=== PATIENT | female | born 1935 | race Caucasian/White ===

== ENCOUNTER 2021-06-02 13:07 | Inpatient (IN) ==
--- NOTE | 2021-06-02 13:52 | Emergency Department Note ---
Impression & Plan Weakness, SOB (shortness of breath), Heart block, Bradycardia ED Provider Note NAME: RENNY BELLO AGE: 85 SEX: F : 1935 ARRIVES VIA: Walk-In INFORMANT: [Patient][, nursing] ED PROVIDER(S): [Asa Jane MD] CHIEF COMPLAINT: Shortness of breath HISTORY OF PRESENT ILLNESS: The patient is an 85-year-old female with dementia. As per her , she has had increasing weakness and shortness of breath over the last 10 or so months. She wore a heart monitor just recently and the findings where worrisome enough for the patient to be sent here to the hospital ED. The patient is supposedly to have a pacemaker placed tomorrow. There has been no fever, no cough or congestion. No vomiting or diarrhea. She has not complained of any chest pain. The is unaware of what was exactly found on the awake overnight monitor. REVIEW OF SYSTEMS: See HPI for pertinent positives and negatives. A total of ten systems were revie wed and were otherwise negative. PMHx/PSHx: See Below SOCIAL HISTORY: See Below. PHYSICAL EXAM: GENERAL: Patient is in no acute distress. HEENT: No acute trauma, normocephalic atraumatic, mucous membranes moist, no nasal congestion, no scleral icterus. NECK: No stridor, no adenopathy, no meningismus, trachea is midline. LUNGS: Clear to auscultation bilaterally, no wheeze, no rhonchi, breath sounds equal. HEART: 2/6 systolic murmur, irregular rhythm, bradycardic. ABDOMEN: Soft, nontender, bowel sounds positive, no hernias, no peritonitis. EXTREMITIES: No cyanosis or edema, full range of motion of all the joints without pain or difficulty, no signs for acute trauma. NEUROLOGIC: Awake and alert, somewhat confused, no acute motor or sensory deficits, no focal weakness. SKIN: No rash, no jaundice, no diaphoresis. DIFFERENTIAL DIAGNOSIS: Infection, UTI, dehydration, metabolic abnormality, hypo/hyperglycemia, electrolyte disturbance, anemia, hypoxia, cardiac sources, heart block, dysrhythmia, intracerebral event, toxicologic issues, stroke, TIA, as well as other pathologies. EMERGENCY DEPARTMENT COURSE/PROCEDURES: ECG: Indication was shortness of breath. The ECG shows what appears to be a third-degree heart block with a junctional escape. The rate is 54. There is some diffuse nonspecific ST change. A right bundle branch block is seen. No ST elevation, the QTC is 472. Continuous Cardiac Monitoring: An order was placed for continuous cardiac monitoring. The monitor shows a rate of 55 with a third-degree heart block. MEDICAL DECISION MAKING: There is a mild leukocytosis which could be consistent with infection however, the patient's white count has been elevated in the recent past. No concerning anemia. There is a normal platelet count. No significant electrolyte abnormality, no renal failure. No concerning liver enzyme elevation. Procalcitonin level was not elevated. The patient appears to be in a euthyroid state. ECG shows a third-degree heart block with what looks like a junctional escape, no obvious ischemia. Cardiac enzyme testing x1 does show a very slight troponin elevation. Chest film shows what appears to be a potential right lower lobe infiltrate. Lyme disease testing returned negative. COVID testing returned negative. The patient presents with increasing shortness of breath and weakness. She was found to be in a third-degree heart block. She may have a pneumonia on her chest x-ray, blood cultures have been ordered. She has not really had re spiratory symptoms though. I did speak with cardiology. No emergent intervention is required today. She will likely have a pacemaker placed tomorrow. I did speak with the patient and her , I spoke with the correctional casework specialist. The on-call hospitalist was consulted. Admission is warranted. Past Med/Surg History Medical History Back pain Dementia Surgical History Postoperative state (05/09/13) Social History Smoking Status: Never smoker Feels Safe at Home: Yes Allergies Allergies Allergy/AdvReac Type Severity Reaction Status Date / Time latex Allergy Intermediate ITCHY WHEN Verified 06/02/21 16:00 WEARING HOUSEHOLD GLOVES rofecoxib Allergy Unknown pesonality Verified 06/02/21 16:00 changes codeine AdvReac Mild NAUSEA Verified 06/02/21 16:00 oxycodone AdvReac Unknown hallucinations/altered Verified 06/02/21 16:00 mental state Home Meds Home Medications Medication Instructions Recorded Confirmed alendronate 70 mg tablet 70 mg PO WK 07/12/20 06/02/21 felodipine 5 mg tablet,extended 5 mg PO QAM 07/12/20 06/02/21 release 24 hr losartan 100 mg tablet 100 mg PO QAM 07/12/20 06/02/21 simvastatin 10 mg tablet 10 mg PO QPM 07/12/20 06/02/21 aspirin 81 mg tablet 81 mg PO DAILY 06/02/21 06/02/21 cholecalciferol (vitamin D3) 50 50 mcg PO DAILY 06/02/21 06/02/21 mcg (2,000 unit) capsule (Vitamin D3) memantine 10 mg tablet 10 mg PO BID 06/02/21 06/02/21 omeprazole 20 mg capsule,delayed 20 mg PO 3XWK 06/02/21 06/02/21 release polyethylene glycol 3350 17 gram 17 g PO DAILY PRN 06/02/21 06/02/21 oral powder packet vitamins A,C,M-gdwl-kmoxou 7,160 1 tab PO BID 06/02/21 06/02/21 unit-113 mg-100 unit tablet (PreserVision AREDS) Results & Data (ED) Vital Signs Vital Signs - 24 hr 06/02/21 13:10 06/02/21 13:14 06/02/21 14:07 Temperature 36.4 C L Temperature Source Temporal Artery Scan Pulse Rate 53 L 48 L 51 L Pulse Rate [Apical] 53 L Respiratory Rate 20 15 19 Respiratory Effort / Characteristics Non-Labored Spontaneous Respiratory Depth Normal Respiratory Pattern Regular Blood Pressure 169/67 H Blood Pressure [Right Arm] 171/61 H Blood Pressure Mean 101 Blood Pressure Mean [Right Arm] 97 Pulse Oximetry 96 96 96 Oxygen Delivery Method Room Air Room Air Room Air Sepsis Recent Fever Within 48 Hours No Sepsis New/Unexplained Change in Mental Status No Sepsis Action Taken by Nursing No Action Required Home Medications Current Medication List: was personally reviewed by me Laboratory Data Attestation: I reviewed the patient's lab results. Result diagrams: 06/02/21 13:50 06/02/21 15:53 Lab Results 06/02/21 06/02/21 06/02/21 Range/Units 06:02 13:50 13:50 WBC 11.07 H (4.8-10.8) K/uL RBC 3.72 L (4.2-5.4) M/uL Hgb 11.3 L (12.0-16.0) g/dL Hct 34.6 L (37-47) % MCV 93.0 (80-100) fL MCH 30.4 (25-34) pg MCHC 32.7 (32-36) g/dL RDW Std Deviation 46.8 H (36.4-46.3) fL RDW Coeff of Carrie 13.8 (11.5-14.5) % Plt Count 355 (130-400) K/uL MPV 9.7 (7.4-10.4) fL Immature Gran % (Auto) 0.2 % Neut % (Auto) 74.1 % Lymph % (Auto) 14.3 % [place] % (Auto) 8.5 % Eos % (Auto) 2.4 % Baso % (Auto) 0.5 % Neut # (Auto) 8.21 H (1.4-6.5) K/uL Lymph # (Auto) 1.58 (1.2-3.4) K/uL [place] # (Auto) 0.94 H (0.11-0.59) K/uL Eos # (Auto) 0.27 (0-0.5) K/uL Baso # (Auto) 0.05 (0-0.2) K/uL Immature Gran # (Auto) 0.02 (0.00-0.02) K/uL Sodium (136-145) mmol/L Potassium Chloride (98-107) mmol/L Carbon Dioxide (21-32) mmol/L Anion Gap (3-11) BUN (6-23) mg/dl Creatinine (0.6-1.2) mg/dl Est Cr Clr Drug Dosing ml/min Est GFR ( Amer) ml/min Est GFR (Non-Af Amer) ml/min BUN/Creatinine Ratio (10-20) Glucose (70-99(Fasting)) mg/dl Calcium (8.5-10.1) mg/dl Magnesium (1.7-2.4) mg/dl Total Bilirubin (0.2-1.0) mg/dl AST ALT (7-52) U/L Alkaline Phosphatase (34-104) U/L Troponin I High Sens 16.2 H (0-14) pg/ml Total Protein (6.0-8.3) gm/dl Albumin (3.4-5.0) gm/dl Globulin (2.5-4.0) gm/dl Albumin/Globulin Ratio (0.9-2) Procalcitonin < 0.05 (0-0.5) ng/ml TSH (0.300-4.500) uIu/ml Lyme Disease IgG Ab Negative (Negative) Lyme Disease IgM Ab Negative (Negative) SARS-CoV-2, RNA, NAAT (NEGATIVE) 06/02/21 06/02/21 06/02/21 Range/Units 13:50 13:50 14:06 WBC (4.8-10.8) K/uL RBC (4.2-5.4) M/uL Hgb (12.0-16.0) g/dL Hct (37-47) % MCV (80-100) fL MCH (25-34) pg MCHC (32-36) g/dL RDW Std Deviation (36.4-46.3) fL RDW Coeff of Carrie (11.5-14.5) % Plt Count (130-400) K/uL MPV (7.4-10.4) fL Immature Gran % (Auto) % Neut % (Auto) % Lymph % (Auto) % [place] % (Auto) % Eos % (Auto) % Baso % (Auto) % Neut # (Auto) (1.4-6.5) K/uL Lymph # (Auto) (1.2-3.4) K/uL [place] # (Auto) (0.11-0.59) K/uL Eos # (Auto) (0-0.5) K/uL Baso # (Auto) (0-0.2) K/uL Immature Gran # (Auto) (0.00-0.02) K/uL Sodium 135 L (136-145) mmol/L Potassium TNP Chloride 103 (98-107) mmol/L Carbon Dioxide 23 (21-32) mmol/L Anion Gap 9 (3-11) BUN 19 (6-23) mg/dl Creatinine 0.83 (0.6-1.2) mg/dl Est Cr Clr Drug Dosing 44.9 ml/min Est GFR ( Amer) 73.5 ml/min Est GFR (Non-Af Amer) 63.4 ml/min BUN/Creatinine Ratio 22.9 H (10-20) Glucose 109 H (70-99(Fasting)) mg/dl Calcium 8.8 (8.5-10.1) mg/dl Magnesium 2.0 (1.7-2.4) mg/dl Total Bilirubin 0.5 (0.2-1.0) mg/dl AST TNP ALT 10 (7-52) U/L Alkaline Phosphatase 61 (34-104) U/L Troponin I High Sens (0-14) pg/ml Total Protein 6.5 (6.0-8.3) gm/dl Albumin 4.0 (3.4-5.0) gm/dl Globulin 2.5 (2.5-4.0) gm/dl Albumin/Globulin Ratio 1.6 (0.9-2) Procalcitonin (0-0.5) ng/ml TSH 2.010 (0.300-4.500) uIu/ml Lyme Disease IgG Ab (Negative) Lyme Disease IgM Ab (Negative) SARS-CoV-2, RNA, NAAT NEGATIVE (NEGATIVE) Imaging Data Radiologist's Impression: Chest X-Ray 06/02/21 13:45 XR chest 1V portable CLINICAL HISTORY: weakness COMPARISON STUDY: Chest radiograph July 12, 2020. FINDINGS: Lung volumes are normal. No pneumothorax or pleural effusion is present. Mild cardiomegaly is unchanged. No evidence for pulmonary edema. There are suspected mild right lower lung opacities. IMPRESSION: 1. Suspected mild right lower lung airspace opacity. This could reflect an infectious process. Radiographic follow up is recommended. 2. Cardiomegaly without evidence for pulmonary edema. ACT 112: Negative or not required by law. Electronically signed by: Chepe Oliveros M.D. 06/02/2021 2:14 PM Discharge Plan Visit Data Chief Complaint: Shortness of Breath/Dyspnea Stated Complaint: SHORTNESS OF BREATH ED Provider: Asa Jane Discharge Problem: Weakness, SOB (shortness of breath), Heart block, Bradycardia Patient Disposition: Admitted As Inpatient Condition: Serious
[2021-06-02 14:09] LABS: Basophils # (auto) 0.05 K/uL (0-0.2); Basophils % (auto) 0.5 %; Eosinophils # (auto) 0.27 K/uL (0-0.5); Eosinophils % (auto) 2.4 %; Hematocrit (blood only) 34.6 % (37-47); Hemoglobin 11.3 g/dL (12.0-16.0); Immature Granulocytes # (auto) 0.02 K/uL (0.00-0.02); Immature Granulocytes % (auto) 0.2 %; Lymphocytes # (auto) 1.58 K/uL (1.2-3.4); Lymphocytes % (auto) 14.3 %; Mean Corpuscular Hemoglobin 30.4 pg (25-34); Mean Corpuscular Hgb Conc 32.7 g/dL (32-36); Mean Platelet Volume 9.7 fL (7.4-10.4); Monocytes # (auto) 0.94 K/uL (0.11-0.59); Monocytes % (auto) 8.5 %; Neutrophils # (auto) 8.21 K/uL (1.4-6.5); Neutrophils % (auto) 74.1 %; Platelet Count 355 K/uL (130-400); RDW Coefficient of Variation 13.8 % (11.5-14.5); RDW Standard Deviation 46.8 fL (36.4-46.3); Red Blood Count 3.72 M/uL (4.2-5.4); White Blood Count 11.07 K/uL (4.8-10.8)
--- NOTE | 2021-06-02 14:16 | XRay Report ---
XR chest 1V portable CLINICAL HISTORY: weakness COMPARISON STUDY: Chest radiograph July 12, 2020. FINDINGS: Lung volumes are normal. No pneumothorax or pleural effusion is present. Mild cardiomegaly is unchanged. No evidence for pulmonary edema. There are suspected mild right lower lung opacities. IMPRESSION: 1. Suspected mild right lower lung airspace opacity. This could reflect an infectious process. Radiog raphic follow up is recommended. 2. Cardiomegaly without evidence for pulmonary edema. ACT 112: Negative or not required by law. Electronically signed by: Chepe Oliveros M.D. 06/02/2021 2:14 PM
--- NOTE | 2021-06-02 14:40 | History & Physical Report ---
Date of Service June 02, 2021 Assessment & Plan (1) Heart block: Plan: Patient is 85-year-old female with PMH dementia, HTN, dyslipidemia presented to ER for shortness of breath and was referred by cardiology for Mobitz II, 2:1 AV block findings found on ZIO monitor In ER HR 40's-50s, BP: 169/67, 96% on RA. EKG appears to be 3rd degree heart block vs mobitz II, rate 54 Pt without SOB at rest, dizziness, CP Suspect pt's exertional SOB/fatigue from possible heart block TSH, Lyme titer WNL Echo pending Initial troponin: 16. Trend troponin NPO midnight EKG in am Cardiology consult. Tentative plan for pacemaker by Dr Blackwell on 06/03/21 unless other acute cause found (2) Abnormal CXR: Plan: CXR: Suspected mild right lower lung airspace opacity. Cardiomegaly without evidence for pulmonary edema Pt without known fever/chills, cough WBC: 11, Procalcitonin WNL Start Rocephin, doxycycline CT chest pending to r/o underlying pneumonia (3) Dementia: Plan: Continue memantine (4) HTN (hypertension): Plan: Continue losartan Hold felodipine (5) Dyslipidemia: Plan: Continue statin DVT Prophylaxis SCDs Full Code as per discussion with pt and pt's Follows with Dr Epstein for routine care Pt was seen and care coordinated with Dr Verma. See addendum History of Present Illness Chief Complaint: SOB Primary Care Provider: Jimena Epstein DO Patient is 85-year-old female with PMH dementia, HTN, dyslipidemia presented to ER for shortness of breath and was referred by cardiology for 2: 1 AV block findings found on ZIO monitor. Patient with history of dementia and helps assist with history. Reported that for the past 10 months patient has had shortness of breath and noted fatigue with exertion. He reports patient appears to become short of breath walking throughout house or climbing stairs and has to stop multiple times when grocery shopping. He feels that this has been a gradual decline but does not feel symptoms have greatly worsened over the past 1 to 2 weeks. Patient denies any chest pain. She is sitting in bed and denies any current shortness of breath. Denies any dizziness or syncopal episodes. reports at baseline patient has difficulty with balance and needs assistance with walking and uses a cane. Denies any recent falls. denies any known fever or chills. Denies any known cough or choking episodes. Reports patient had 1 episode of vomiting 3 days ago after eating breakfast, no other vomiting. Denies abdominal pain, diarrhea. No known tick bites. Patient was on felodipine and PCP had discontinued secondary to bradycardia, upon follow-up with cardiology last week felodipine was restarted. Denies diaphoresis, hematemesis, ABARCA, vision changes, neck pain, orthopnea, palpitations, sore throat, otalgia, rhinorrhea, abdominal pain, paresthesias, weakness, extremity edema, rashes, urinary symptoms. Allergies Allergy/AdvReac Type Severity Reaction Status Date / Time latex Allergy Intermediate ITCHY WHEN Verified 06/02/21 16:00 WEARING HOUSEHOLD GLOVES rofecoxib Allergy Unknown pesonality Verified 06/02/21 16:00 changes codeine AdvReac Mild NAUSEA Verified 06/02/21 16:00 oxycodone AdvReac Unknown hallucinations/altered Verified 06/02/21 16:00 mental state Home Medications Medication Instructions Recorded Confirmed Type alendronate 70 mg tablet 70 mg PO WK 07/12/20 06/02/21 History felodipine 5 mg tablet,extended 5 mg PO QAM 07/12/20 06/02/21 History release 24 hr losartan 100 mg tablet 100 mg PO QAM 07/12/20 06/02/21 History simvastatin 10 mg tablet 10 mg PO QPM 07/12/20 06/02/21 History aspirin 81 mg tablet 81 mg PO DAILY 06/02/21 06/02/21 History cholecalciferol (vitamin D3) 50 50 mcg PO DAILY 06/02/21 06/02/21 History mcg (2,000 unit) capsule (Vitamin D3) memantine 10 mg tablet 10 mg PO BID 06/02/21 06/02/21 History omeprazole 20 mg capsule,delayed 20 mg PO 3XWK 06/02/21 06/02/21 History release polyethylene glycol 3350 17 gram 17 g PO DAILY PRN 06/02/21 06/02/21 History oral powder packet vitamins A,C,Q-dbxl-jyrsho 7,160 1 tab PO BID 06/02/21 06/02/21 History unit-113 mg-100 unit tablet (PreserVision AREDS) Past Med/Surg History Medical History (Updated 06/02/21 @ 17:41 by Guillermina Murillo PA-C) Back pain Dementia Dyslipidemia HTN (hypertension) Surgical History (Updated 06/02/21 @ 17:29 by Guillermina Murillo PA-C) History of cataract surgery History of colonoscopy History of hemorrhoidectomy History of hysterectomy Family History (Updated 06/02/21 @ 17:30 by Guillermina Murillo PA-C) Other Cancer Heart disease Hypertension Social History (Updated 06/02/21 @ 17:30 by Guillermina Murillo PA-C) Smoking Status: Never smoker Hx Alcohol Use: No Hx Substance Use: No Preferred Language: Frisian Communication Ability: Impaired Communication Ability Comment: alzheimers Fish Butcher Required: No Beliefs That Will Affect Care: None Current Living Situation: Spouse Current Living Situation Comment: home with Feels Safe at Home: Yes Safety Concerns: Feels Safe At This Time Assistive Devices: Glasses Review of Systems Review of Systems: All systems reviewed & are unremarkable except as noted in HPI & below Physical Exam Physical Exam: General: no distress, WDWN Head: normocephalic, atraumatic Eyes: PERRL, EOM's intact, conjunctiva non-injected, anicteric ENT: normal inspection external ears, nose, mucous membranes moist Neck: supple, trachea midline Lungs: no respiratory distress, +rales RLL, no wheezing or rhonchi CV: bradycardia, rate 42, regular rhythm, systolic murmur, no pretibial edema Abd: normal BS, soft, non-tender Ext: no cyanosis, no calf tenderness Neuro: Alert, oriented to person only, no focal deficits noted, normal affect Skin: warm, dry Results & Data Results & Data ([facility]) Vital Signs (Past 12 Hours) Vital Signs Temp Pulse Pulse Resp BP BP Pulse Ox 06/02/21 14:07 51 L 19 96 06/02/21 13:14 48 L 53 L 15 171/61 H 96 06/02/21 13:10 36.4 C L 53 L 20 169/67 H 96 Laboratory Results Short CBC 06/02/21 Range/Units 13:50 WBC 11.07 H (4.8-10.8) K/uL Hgb 11.3 L (12.0-16.0) g/dL Hct 34.6 L (37-47) % Plt Count 355 (130-400) K/uL BMP 06/02/21 06/02/21 13:50 15:53 Sodium 135 L Potassium TNP 4.1 Chloride 103 Carbon Dioxide 23 BUN 19 Creatinine 0.83 Glucose 109 H Calcium 8.8 Liver Function 06/02/21 06/02/21 Range/Units 13:50 15:53 Total Bilirubin 0.5 (0.2-1.0) mg/dl AST TNP 11 L ALT 10 (7-52) U/L Alkaline Phosphatase 61 (34-104) U/L Albumin 4.0 (3.4-5.0) gm/dl Diagnostic Findings Chest X-Ray 06/02/21 13:45 XR chest 1V portable CLINICAL HISTORY: weakness COMPARISON STUDY: Chest radiograph July 12, 2020. FINDINGS: Lung volumes are normal. No pneumothorax or pleural effusion is present. Mild cardiomegaly is unchanged. No evidence for pulmonary edema. There are suspected mild right lower lung opacities. IMPRESSION: 1. Suspected mild right lower lung airspace opacity. This could reflect an infectious process. Radiographic follow up is recommended. 2. Cardiomegaly without evidence for pulmonary edema. ACT 112: Negative or not required by law. Electronically signed by: Chepe Oliveros M.D. 06/02/2021 2:14 PM Supervising Physician Co-Signing Physician Notes 85 yo F presents with symptomatic bradycardia and elective pacemaker insertion. She has dementia, and therefore, her history is provided through her and records. She was sent to Cardiology for SOB with exertion and bradycardia. She underwent a Zio monitor recently which reveals AV block. In the ER she had a CXR concerning for RLL pneumonia and there are coarse crackles in this area on auscultation today. denies any coughing per se, but does state she has been wheezing recently. Denies fevers. One episode of vomiting after eating breakfast the other day that did not recur. On exam she hypertensive with BP 181/78. She is able to say her name but thinks she is in [place]. She is loving and deferential to her and follows commands. She is alert and WNWD in NAD. Somewhat muffled cardiac sounds on auscultation but S1/2 were heard without murmurs, gallops or rubs. Crackles at RLL on pulmonary auscultation as above. Abdomen soft, NTND. Skin warm and dry and she is moving all extremities with ease. Labwork reveals WBC 11K with slight left shift, negative procalcitonin, slight anemia with H/H 11/35, slightly elevated trop at 16.2. Lyme screen is negative and thyroid is normal. EKG with 3rd degree AV block with junctional escape and bradycardia. CXR with RLL opacity which may be reflective of an infectious process. 85 yo F presents with AV block in need of pacemaker placement. There is concern that she may have an underlying pulmonary infection, however. It is somewhat reassuring that her procalcitonin is negative, however, would continue antibiotics pending further delineation with CT chest tonight. Her blood pre ssure is also very elevated. Still awaiting echo findings, and will give some hydralazine for now. She did take her losartan at home per and her BP was 134 systolic in the cardiology clinic earlier today. Cont to monitor closely overnight. She is high risk for hospital delirium given her underlying dementia. Cont good day/night cycles and reorient when needed. DO Bayron ADDENDUM: Procalcitonin was negative, and CT chest ruled out pneumonia. There was a small RLL effusion and atelectasis present. In this setting where patient is also not having active respiratory symptoms, this likely rules out pneumonia. Antibiotics will be stopped and will defer to cardiology to proceed with pacemaker as they see fit in am. With an additional dose of hydralazine, her blood pressure is now own to 165/69. Will cont to monitor closely overnight. DO Bayron
[2021-06-02 14:43] LABS: Alanine Aminotransferase 10 U/L (7-52); Albumin Globulin Ratio 1.6 (0.9-2); Alkaline Phosphatase 61 U/L (34-104); Anion Gap 9 (3-11); BUN Creatinine Ratio 22.9 (10-20); Bilirubin,Total 0.5 mg/dl (0.2-1.0); Blood Urea Nitrogen 19 mg/dl (6-23); Calcium 8.8 mg/dl (8.5-10.1); Carbon Dioxide 23 mmol/L (21-32); Chloride 103 mmol/L (98-107); Creatinine Clr Calc Pharmacy 44.9 ml/min; Est GFR (African American) 73.5 ml/min; Est GFR (Non-African American) 63.4 ml/min; Globulin 2.5 gm/dl (2.5-4.0); Glucose 109 mg/dl (70-99(Fasting)); Sodium 135 mmol/L (136-145); Total Protein 6.5 gm/dl (6.0-8.3)
[2021-06-02] MEDS ORDERED: cefTRIAXone SODIUM 1,000 MG in DEXTROSE 5% 50 ML IV STA (16:29)
[2021-06-02 16:31] LABS: Potassium 4.1 mmol/L (3.5-5.1)
[2021-06-02] MEDS ORDERED: cefTRIAXone SODIUM 1,000 MG/50 ML BAG IV STA (16:35)
[2021-06-02 16:59] LABS: Procalcitonin < 0.05 ng/ml (0-0.5)
[2021-06-02 17:04] LABS: Lyme Ab IgG w/WB Rflx Negative (Negative); Lyme Ab IgM w/WB Rflx Negative (Negative)
[2021-06-02] MEDS ORDERED: POLYETHYLENE (MIRALAX) 17 GM PACK PO PRN (17:20)
--- NOTE | 2021-06-02 17:57 | Communication Note ---
Date of Service: June 02, 2021 85 yo F presents with symptomatic bradycardia and elective pacemaker insertion. She has dementia, and therefore, her history is provided through her and records. She was sent to Cardiology for SOB with exertion and bradycardia. She underwent a Zio monitor recently which reveals AV block. In the ER she had a CXR concerning for RLL pneumonia and there are coarse crackles in this area on auscultation today. denies any coughing per se, but does state she has been wheezing recently. Denies fevers. One episode of vomiting after eating breakfast the other day that did not recur. On exam she hypertensive with BP 181/78. She is able to say her name but thinks she is in [place]. She is loving and deferential to her and follows commands. She is alert and WNWD in NAD. Somewhat muffled cardiac sounds on auscultation but S1/2 were heard without murmurs, gallops or rubs. Crackles at RLL on pulmonary auscultation as above. Abdomen soft, NTND. Skin warm and dry and she is moving all extremities with ease. Labwork reveals WBC 11K with slight left shift, negative procalcitonin, slight anemia with H/H 11/35, slightly elevated trop at 16.2. Lyme screen is negative and thyroid is normal. EKG with 3rd degree AV block with junctional escape and bradycardia. CXR with RLL opacity which may be reflective of an infectious process. 85 yo F presents with AV block in need of pacemaker placement. There is concern that she may have an underlying pulmonary infection, however. It is somewhat reassuring that her procalcitonin is negative, however, would continue antibiotics pending further delineation with CT chest tonight. Her blood pressure is also very elevated. Still awaiting echo findings, and will give s ome hydralazine for now. She did take her losartan at home per and her BP was 134 systolic in the cardiology clinic earlier today. Cont to monitor closely overnight. She is high risk for hospital delirium given her underlying dementia. Cont good day/night cycles and reorient when needed. DO Bayron
[2021-06-02] MEDS ORDERED: hydrALAZINE HCL 20 MG/ML VIAL IV ONE (18:14)
[2021-06-02 18:44] LABS: Appearance Urine Clear (Clear); Bacteria Urine Automated Negative (Negative); Bilirubin Urine Negative (Negative); Blood Urine Negative (Negative); Cast Urine Automated 0 /lpf (0-5); Color Urine Yellow; Glucose Urine UA Negative (Negative); Ketones Urine Negative (Negative); Leukocyte Esterase Urine Negative (Negative); Nitrite Urine Negative (Negative); Protein Urine Trace (Negative); RBC Urine Automated 0-4 /hpf (0-4); Urobilinogen Urine Negative (Negative); WBC Urine Automated 0 /hpf (0-5); pH Urine 5.5 (4.5-7.5)
[2021-06-02] MEDS ORDERED: hydrALAZINE HCL 20 MG/ML VIAL IV STA (20:44)
[2021-06-02] MEDS ORDERED: DOXYCYCLINE HYCLATE 100 MG CAP PO SCH (21:00)
[2021-06-02] MEDS: MEMANTINE HCL 10 MG TAB PO SCH (21:31)
[2021-06-02] MEDS: SIMVASTATIN 10 MG TAB PO SCH (21:31)
[2021-06-02] MEDS: PANTOprazole 40 MG TAB PO SCH (21:31)
--- NOTE | 2021-06-02 21:37 | CT Scan Report ---
CT chest diagnostic wo con CLINICAL HISTORY: r/o pneumonia TECHNIQUE: Multidetector row helical CT of the chest was performed. Coronal and sagittal reformations were obtained. Automated dose lowering techniques and/or adjustment according to patient size were u tilized for this exam. CT DOSE: 222.72 mGy.cm Comparison: None available at the time of this dictation. FINDINGS: Lungs and pleura: Bilateral pleural effusions and atelectasis are seen. There is diffuse interlobular septal thickening. A 6 mm groundglass opacity is seen in the right upper lobe (series 4 image 128). Heart and pericardium: Cardiomegaly is seen with biatrial enlargement. Vessels: Moderate atherosclerotic changes in the aorta and coronary arteries. Mediastinum and gloria: Subcentimeter lymph nodes are seen. Chest wall and lower neck: Unremarkable. Abdomen: A hiatal hernia is seen. Bones: Degenerative changes in the thoracic spine. IMPRESSION: 1. There are small bilateral pleural effusions with associated atelectasis. 2. Cardiomegaly and moderate pulmonary edema. 3. 6 mm groundglass nodule in the right upper lobe is nonspecific, however no follow-up is required by Fleischner criteria. ACT 112: Negative or not required by law. Electronically signed by: Ricky Hayes M.D. 06/02/2021 9:34 PM
[2021-06-03 03:37] LABS: BUN Creatinine Ratio 18.9 (10-20); Calcium 8.8 mg/dl (8.5-10.1); Creatinine Clr Calc Pharmacy 50.4 ml/min; Est GFR (African American) 84.4 ml/min; Est GFR (Non-African American) 72.8 ml/min; Potassium 3.9 mmol/L (3.5-5.1)
[2021-06-03 05:33] LABS: Mean Corpuscular Hgb Conc 32.7 g/dL (32-36); Mean Platelet Volume 10.2 fL (7.4-10.4); Platelet Count 371 K/uL (130-400)
[2021-06-03] MEDS: LOSARTAN POTASSIUM 50 MG TAB PO SCH (05:53)
[2021-06-03 05:56] LABS: Basophils # (auto) 0.04 K/uL (0-0.2); Basophils % (auto) 0.3 %; Eosinophils # (auto) 0.16 K/uL (0-0.5); Eosinophils % (auto) 1.4 %; Hematocrit (blood only) 34.3 % (37-47); Hemoglobin 11.2 g/dL (12.0-16.0); Immature Granulocytes # (auto) 0.01 K/uL (0.00-0.02); Immature Granulocytes % (auto) 0.1 %; Lymphocytes # (auto) 1.41 K/uL (1.2-3.4); Lymphocytes % (auto) 12.1 %; Mean Corpuscular Hemoglobin 30.5 pg (25-34); Mean Corpuscular Volume 93.5 fL (80-100); Monocytes # (auto) 0.88 K/uL (0.11-0.59); Monocytes % (auto) 7.5 %; Neutrophils # (auto) 9.18 K/uL (1.4-6.5); Neutrophils % (auto) 78.6 %; RDW Coefficient of Variation 13.8 % (11.5-14.5); RDW Standard Deviation 47.3 fL (36.4-46.3); Red Blood Count 3.67 M/uL (4.2-5.4); White Blood Count 11.68 K/uL (4.8-10.8)
[2021-06-03] MEDS ORDERED: LIDOCAINE 1% LOCAL 20 ML VIAL ONE (06:46)
[2021-06-03] MEDS ORDERED: WATER, STERILE FOR INJ 10 ML VIAL ONE (06:46)
[2021-06-03] MEDS ORDERED: VANCOMYCIN HCL 1000MG/20ML VIAL ONE (06:47)
[2021-06-03] MEDS ORDERED: BUPIVACAINE 0.25% 30 ML VIAL ONE (06:47)
[2021-06-03] MEDS ORDERED: ceFAZolin 330 MG/ML 1 GM VIAL ONE (07:14)
[2021-06-03] MEDS ORDERED: fentaNYL citrate 100 MCG/2 ML VIAL ONE ×2 (07:14→08:55)
[2021-06-03] MEDS ORDERED: MIDAZOLAM HCL 5 MG/ML 1 ML VIAL ONE (07:14)
--- NOTE | 2021-06-03 07:22 | Cardiology Consultation ---
Date of Consultation June 03, 2021 Assessment & Plan (1) Bradycardia: (2) AV block, 2nd degree: (3) SOB (shortness of breath): (4) Dementia: (5) HTN (hypertension): Patient with symptomatic atrioventricular block. CT and chest x-ray consistent with mild pulmonary edema. Patient with ongoing hypertension. At present, she is supine and comfortable. Recommend proceeding with implantation of dual-chamber permanent pacemaker. After pacemaker in place, we will work on optimizing her volume status and hypertension. Will give her her morning antihypertensive medications by mouth. Anticipate blood pressure will improve with administration of necessary sedation for procedure. Consent for the procedure will need to be obtained from her , Marcelo, either in person or by phone. History of Present Illness Attending Physician: Stacy Verma, History of Present Illness Meron Hollis is an 85 year old female seen in cardiology consultation per the request of Dr. Verma for the evaluation of bradycardia. The patient had established with the undersigned, with initial outpatient consult last week. She has a history of dementia diagnosed 2 to 3 years ago. She is unable to provide any helpful subjective history, and history is obtained last week per interview with her , Marcelo who accompanied her to the appointment. The patient had presented in a wheelchair. His recent observation was that she had progressive easy fatigability, inability to perform even brief walks due to what he felt was a visible degree of shortness of breath. The patient had 2 EKGs performed recently as an outpatient that were suggestive of sinus rhythm with frequent premature atrial contractions and blocked premature atrial contractions. She went on to have a [employer] pvc monitor which she wore for 7 days which revealed evidence of intermittent Mobitz type II second-degree heart block, and brief episodes of third-degree AV block. During these episodes, the ventricular rate was in the upper 40s to low 50s. 2Twipatient triggered events for symptoms of exertional shortness of breath correlated with 2: 1 heart block with ventricular rate in the 40s. After receiving these results yesterday, I called the , he noted worsening symptoms since her outpatient visit last week. The patient was therefore directed to the emergency room. Initial EKG consistent with third- degree AV block with ventricular rate in the 40s. At present at the time of my assessment at 7 AM 06/03/2021, telemetry reveals 2-1 AV block, ventricular rate in the upper 40s to 50s. Patient hypertensive on presentation and remains hypertensive this morning. She has no acute complaints, once again dementia noted. Allergies Allergy/AdvReac Type Severity Reaction Status Date / Time latex Allergy Intermediate ITCHY WHEN Verified 06/02/21 16:00 WEARING HOUSEHOLD GLOVES rofecoxib Allergy Unknown pesonality Verified 06/02/21 16:00 changes codeine AdvReac Mild NAUSEA Verified 06/02/21 16:00 oxycodone AdvReac Unknown hallucinations/altered Verified 06/02/21 16:00 mental state Home Medications Medication Instructions Recorded Confirmed Type alendronate 70 mg tablet 70 mg PO WK 07/12/20 06/02/21 History felodipine 5 mg tablet,extended 5 mg PO QAM 07/12/20 06/02/21 History release 24 hr losartan 100 mg tablet 100 mg PO QAM 07/12/20 06/02/21 History simvastatin 10 mg tablet 10 mg PO QPM 07/12/20 06/02/21 History aspirin 81 mg tablet 81 mg PO DAILY 06/02/21 06/02/21 History cholecalciferol (vitamin D3) 50 50 mcg PO DAILY 06/02/21 06/02/21 History mcg (2,000 unit) capsule (Vitamin D3) memantine 10 mg tablet 10 mg PO BID 06/02/21 06/02/21 History omeprazole 20 mg capsule,delayed 20 mg PO 3XWK 06/02/21 06/02/21 History release polyethylene glycol 3350 17 gram 17 g PO DAILY PRN 06/02/21 06/02/21 History oral powder packet vitamins A,C,U-aaws-tenxtn 7,160 1 tab PO BID 06/02/21 06/02/21 History unit-113 mg-100 unit tablet ([employer] AREDS) Patient History Medical History Back pain Dementia Dyslipidemia HTN (hypertension) Surgical History History of cataract surgery History of colonoscopy History of hemorrhoidectomy History of hysterectomy Family History Other Cancer Heart disease Hypertension Social History Smoking Status: Never smoker Hx Alcohol Use: No Hx Substance Use: No Preferred Language: Micronesian Communication Ability: Impaired Communication Ability Comment: alzheimers Work Environment Safety Inspector Required: No Beliefs That Will Affect Care: None Current Living Situation: Spouse Current Living Situation Comment: home with Feels Safe at Home: Yes Safety Concerns: Feels Safe At This Time Assistive Devices: Glasses Review of Systems Review of Systems: Unobtainable due to cognitive status Physical Exam Constitutional: no acute distress Respiratory: normal respiratory effort, lungs clear to auscultation Cardiovascular: Rate/Rhythm: regular rate and + bradycardic Heart Sounds: no murmur Vessels: no JVD Extremities: no edema Gastrointestinal (Abdomen): normal bowel sounds, soft, nontender, no hepatosplenomegaly Neurologic: Follows commands, cognitive impairment of dementia noted Results & Data ([facility]) Vital Signs (Past 12 Hours) Vital Signs Temp Pulse Pulse Resp BP Pulse Ox 06/03/21 04:54 36.3 C L 49 L 20 196/45 H 95 06/02/21 23:06 52 L 06/02/21 23:00 36.4 C L 64 18 191/63 H 95 06/02/21 21:50 61 165/69 H Laboratory Results Cardiac Enzymes 06/02/21 06/02/21 Range/Units 13:50 15:53 AST TNP 11 L CBC 06/02/21 06/03/21 06/03/21 Range/Units 13:50 02:54 02:59 WBC 11.07 H 11.68 H Cancelled (4.8-10.8) K/uL RBC 3.72 L 3.67 L Cancelled (4.2-5.4) M/uL Hgb 11.3 L 11.2 L Cancelled (12.0-16.0) g/dL Hct 34.6 L 34.3 L Cancelled (37-47) % Plt Count 355 371 Cancelled (130-400) K/uL Neut # (Auto) 8.21 H 9.18 H Cancelled (1.4-6.5) K/uL Lymph # (Auto) 1.58 1.41 Cancelled (1.2-3.4) K/uL Burnet # (Auto) 0.94 H 0.88 H Cancelled (0.11-0.59) K/uL Eos # (Auto) 0.27 0.16 Cancelled (0-0.5) K/uL Baso # (Auto) 0.05 0.04 Cancelled (0-0.2) K/uL Comprehensive Metabolic Panel 06/02/21 06/02/21 06/03/21 Range/Units 13:50 15:53 02:59 Sodium 135 L 136 (136-145) mmol/L Potassium TNP 4.1 3.9 Chloride 103 104 (98-107) mmol/L Carbon Dioxide 23 23 (21-32) mmol/L BUN 19 14 (6-23) mg/dl Creatinine 0.83 0.74 (0.6-1.2) mg/dl Glucose 109 H 108 H (70-99(Fasting)) mg/dl Calcium 8.8 8.8 (8.5-10.1) mg/dl AST TNP 11 L ALT 10 (7-52) U/L Alkaline Phosphatase 61 (34-104) U/L Total Protein 6.5 (6.0-8.3) gm/dl Albumin 4.0 (3.4-5.0) gm/dl Intake and Output 06/02/21 06/03/21 06/03/21 22:59 06:59 14:59 Intake Total 50 / 50 Output Total 900 / 1150 250 / 1150 Balance -850 / -1100 -250 / -1100 Intake: IV 50 / 50 cefTRIAXone SODIUM 1,000 mg In 50 / 50 50 ml @ 100 mls/hr IV NOW STA Rx#:[id number] Output: Urine Amount (Catheter) 900 / 1150 250 / 1150 Pedro/Indwelling 900 / 1150 250 / 1150 Other: Weight 77.2 kg 76.4 kg Weight Measurement Method Built in [facility] Built in [facility] Diagnostic Findings Most recent EKG performed 06/03/2021 at 5:49 AM reveals second-degree AV block with 2: 1 conduction. Ventricular rate 48 bpm. Right bundle branch block. Echocardiogram performed 06/02/2021, performed while patient was in second-degree heart block, mild concentric left ventricular hypertrophy, LVEF 65 to 70%, no regional wall motion abnormalities, severe mitral annular calcification without mitral stenosis. Assessment of mitral regurgitation limited due to AV block, mild tricuspid regurgitation noted, estimated pulmonary artery systolic pressure mildly elevated [address], small bilateral pleural effusions per radiology report, cardiomegaly and moderate pulmonary edema, 6 mm groundglass nodule in the right upper lobe, nonspecific.
--- NOTE | 2021-06-03 07:55 | History & Physical Bridge Note ---
Date of Service June 03, 2021 History & Physical Bridge Note I have examined the patient, reviewed the History & Physical and in the interval since the performance of the History & Physical I have noted the following changes of clinical significance: no changes noted; pt with intermittent CHB; i spoke with the patient's and discussed the procedure and potential risks for a dual chamber ppm; phone consent obtained.
--- NOTE | 2021-06-03 07:56 | Pre Anesthesia Assessment ---
Date of Service June 03, 2021 Pre Sedation Assessment Vital Signs Temp Pulse Pulse Resp BP BP Pulse Ox 06/03/21 07:43 45 L 06/03/21 07:37 58 L 18 185/68 H 95 06/03/21 07:31 56 L 185/68 H 96 06/03/21 07:23 36.7 C 60 22 202/70 H 94 06/03/21 04:54 36.3 C L 49 L 20 196/45 H 95 06/02/21 23:06 52 L 06/02/21 23:00 36.4 C L 64 18 191/63 H 95 06/02/21 21:50 61 165/69 H 06/02/21 18:39 45 L 180/53 H 06/02/21 18:30 45 L 06/02/21 17:20 37 C 42 L 18 181/78 H 94 06/02/21 17:14 36.5 C 46 L 18 188/62 H 96 06/02/21 15:08 48 L 21 173/69 H 96 06/02/21 14:07 51 L 19 96 06/02/21 13:14 48 L 53 L 15 171/61 H 96 06/02/21 13:10 36.4 C L 53 L 20 169/67 H 96 Cardiovascular + bradycardic Respiratory normal respiratory effort, lungs clear to auscultation Pre-Sedation Airway Assessment Smoking Status: Never smoker Short, Thick Neck: No Thyromental Distance: > or= 3.5 Finger Breadths Oral Cavity: + WNL Mallampati Class: III ASA: ASA3 NPO Status Date of Last Intake of Fluids: 06/02/21 Date of Last Intake of Solid Food: 06/02/21 Procedure Planning Contraindications for Sedation: none Current Medications Reviewed: Yes Notes The planned sedation has been discussed with the patient. Informed Consent was obtained. I have identified the patient, determined the appropriateness of sedation and have assessed the patient immediately prior to the procedure. All medicine(s) and interventions are by my order.
[2021-06-03] MEDS ORDERED: ONDANSETRON INJ 2 MG/ML 2 ML VIAL ONE (08:31)
[2021-06-03] MEDS ORDERED: PROMETHAZINE 12.5 MG/50.5 ML NSS IV ONE (08:52)
[2021-06-03] MEDS ORDERED: LOSARTAN POTASSIUM 50 MG TAB PO SCH (09:00)
[2021-06-03] MEDS ORDERED: cefTRIAXone SODIUM 1,000 MG in DEXTROSE 5% 50 ML IV SCH (09:00)
--- NOTE | 2021-06-03 09:28 | Post Anesthesia Assessment ---
Date of Service June 03, 2021 Post Sedation Assessment Vital Signs Temp Pulse Pulse Resp BP BP Pulse Ox 06/03/21 07:43 45 L 06/03/21 07:37 58 L 18 185/68 H 95 06/03/21 07:31 56 L 185/68 H 96 06/03/21 07:23 36.7 C 60 22 202/70 H 94 06/03/21 04:54 36.3 C L 49 L 20 196/45 H 95 06/02/21 23:06 52 L 06/02/21 23:00 36.4 C L 64 18 191/63 H 95 06/02/21 21:50 61 165/69 H 06/02/21 18:39 45 L 180/53 H 06/02/21 18:30 45 L 06/02/21 17:20 37 C 42 L 18 181/78 H 94 06/02/21 17:14 36.5 C 46 L 18 188/62 H 96 06/02/21 15:08 48 L 21 173/69 H 96 06/02/21 14:07 51 L 19 96 06/02/21 13:14 48 L 53 L 15 171/61 H 96 06/02/21 13:10 36.4 C L 53 L 20 169/67 H 96 Recovery Score Activity: Moves 4 extremities Respiration: Deep Breath/Cough Circulation: +/-20% PreAnes Value Consciousness: Fully Awake Oxygen Saturation: > 92% On Room Air Discharge Sedation Level of Care: Fast Track Phase II Post Sedation Plan On clinical assessment, the patient appears to have tolerated the sedation without complications. Patient is recovering as anticipated. Patient will continue to be monitored by nursing and may be discharged when sedation discharge criteria are met per below protocol. Upon Completions of procedure up to 15 minutes continue every 5 minute vital signs and the P.A.R. score; then discharge to a Phase I or Fast Track to Phase II per the following guidelines: * Discharge Patient to appropriate Phase II area if PAR is 8 or greater or return to pre- procedure baseline. The post - procedure orders will be as directed. * If PAR score is less than 8 or not return to pre-procedure baseline then patient will follow Phase I monitoring till PAR is reached for Phase II. The Phase I may be done in procedure room or may call to secure a Phase I area. * If naloxone or flumazenil are used for reversal, hold in Phase I for continued monitoring from when last reversal dose was given for a minimum of 60 minutes or longer pending the nurse and/or physician discretion of patient condition before discharge to Phase II. Please call the Sedation Physician to re-evaluate and complete post-note for discharge to Phase II area. Do NOT discharge from procedure sedation or Phase 1 until post- sedation evaluation note is complete by procedure /sedation MD Sedation Discharge Instructions to be given to the patient at discharge to home.
[2021-06-03] MEDS ORDERED: ACETAMINOPHEN 325 MG TAB PO PRN (09:29)
--- NOTE | 2021-06-03 09:29 | Operative Report ---
Post Operative Report Pre & Post Diagnosis CHB Operation Date: 06/03/21 08:00 <No data on this case meets the specified criteria> I identified the patient and participated in the time-out.: Yes Procedure Operation Date: 06/03/21 08:00 Actual Procedures s Bundle of his Recording - Dalia Blcakwell DO p Pacer with A/V Leads (Dual) - Dalia Blackwell DO s Venogram, Unilateral - Dalia Blackwell DO Surgeon Dalia Blackwell, Machine Packager none Estimated Blood Loss 40 Findings Consistent with Post-Op Diagnosis Specimens none Description of Procedure see official report I attest to the content of the Intraoperative Record and any orders documented therein. Any exceptions are noted below.
[2021-06-03] MEDS: ASPIRIN 81 MG ECTAB PO SCH (10:25)
[2021-06-03] MEDS: MEMANTINE HCL 10 MG TAB PO SCH ×2 (10:25→20:23)
[2021-06-03] MEDS ORDERED: FUROSEMIDE INJ 20 MG/2 ML VIAL IV ONE (11:53)
--- NOTE | 2021-06-03 11:57 | Communication Note ---
Date of Service: June 03, 2021 Pt reassessed post pacemaker. Moderate agitation noted. SBP remains 180s to 190s, occasional wheezing (perhaps related to volume retention). 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 1:1 supervision recommended to prevent her from causing harm to pacemaker pocket/ leads. Might be helpful to have in to help redirect / calm her.
[2021-06-03] MEDS: METOPROLOL TARTRATE 25 MG TAB PO SCH ×2 (12:48→20:22)
[2021-06-03] MEDS: ACETAMINOPHEN 325 MG TAB PO PRN (14:02)
[2021-06-03] MEDS: amLODIPine BESYLATE 5 MG TAB PO SCH (14:02)
--- NOTE | 2021-06-03 17:54 | Electrocardiogram Report ---
Test Reason : Blood Pressure : / mmHG Vent. Rate : 054 BPM Atrial Rate : 083 BPM P-R Int : 000 ms QRS Dur : 122 ms QT Int : 498 ms P-R-T Axes : 000 056 019 degrees QTc Int : 472 ms Sinus rhythm with high degree AV block and junctional escape beats Right bundle branch block Abnormal ECG When compared with ECG of 02-JUN-2021 13:35, (unconfirmed) T wave inversion now evident in Inferior leads Confirmed by Logan Liu ([id number]) on 06/03/2021 5:54:11 PM Referred By: Confirmed By:Josef Liu
--- NOTE | 2021-06-03 18:01 | Electrocardiogram Report ---
Test Reason : Blood Pressure : / mmHG Vent. Rate : 048 BPM Atrial Rate : 048 BPM P-R Int : 146 ms QRS Dur : 118 ms QT Int : 582 ms P-R-T Axes : 059 058 036 degrees QTc Int : 519 ms Sinus rhythm with 2:1 AV block Right bundle branch block Abnormal ECG Confirmed by Logan Liu ([id number]) on 06/03/2021 6:01:01 PM Referred By: Ced Cannon Confirmed By:Josef Liu
--- NOTE | 2021-06-03 18:06 | Electrocardiogram Report ---
Test Reason : Blood Pressure : / mmHG Vent. Rate : 093 BPM Atrial Rate : 093 BPM P-R Int : 152 ms QRS Dur : 120 ms QT Int : 392 ms P-R-T Axes : 039 -32 133 degrees QTc Int : 487 ms Poor data quality, interpretation may be adversely affected Atrial-sensed ventricular-paced rhythm Abnormal ECG When compared with ECG of 03-JUN-2021 05:49, (unconfirmed) Electronic ventricular pacemaker has replaced Sinus rhythm Vent. rate has increased BY 45 BPM Confirmed by Logan Liu ([id number]) on 06/03/2021 6:06:32 PM Referred By: Ced Cannon Confirmed By:Josef Liu
[2021-06-03] MEDS: SIMVASTATIN 10 MG TAB PO SCH (20:23)
--- NOTE | 2021-06-03 23:53 | Hospitalist Progress Note ---
Date of Service June 03, 2021 Assessment & Plan (1) Heart block: Plan: Patient is 85-year-old female with PMH dementia, HTN, dyslipidemia presented to ER for shortness of breath and was referred by cardiology for Mobitz II, 2:1 AV block findings found on ZIO monitor EKG on admission consistent with third-degree AV block with ventricular rate in the 40s. S/P pacemaker placement today by dr. Blackwell No postop complication continue 1 to 1 observation prevent her from causing harm to pacemaker pocket/ leads due to her dementia Will get cxr in am continue monitor closely (2) Elevated troponin: Plan: troponin peak to 343 Denies any chest pain Cardiology on board Continue aspirin, statin and metoprolol (3) Abnormal CXR: Plan: CXR: Suspected mild right lower lung airspace opacity. Cardiomegaly without evidence for pulmonary edema CT chest showed Cardiomegaly and moderate pulmonary edema.6 mm groundglass nod ule in the right upper lobe is nonspecific Pt without known fever/chills, cough WBC: 11, Procalcitonin WNL Abx was discontinued Continue monitor (4) Dementia: Plan: Continue memantine (5) HTN (hypertension): Plan: BP elevated Continue losartan Metoprolol 25mg BID and Amlodipine 5mg added Continue monitor BP (6) Dyslipidemia: Plan: Continue statin DVT Prophylaxis SCDs Full Code Follows with Dr Epstein for routine care Admission and Anticipated Discharge Date Admission Date: June 02, 2021 Subjective Patient was seen and evaluated for postop follow-up for pacemaker placement Lying in bed with no acute distress with at bedside Pt was not agitated and follow command Denies any pain, palpitation and SOB Review of Systems Review of Systems: All systems reviewed & are unremarkable except as noted in Subjective Physical Exam Physical Exam: General- No acute distress Head- atraumatic Eyes- PERRL, EOMI, ENT- oropharynx clear Neck- supple, no JVD Lungs- clear to auscultation Heart- regular rhythm; no murmur Abdomen- normal bowel sounds, soft, nontender Extremities- no calf tenderness Neuro- alert, oriented x 3; PERRL, EOMI; no facial palsy; no dysarthria Skin- warm & dry Results & Data Results & Data ([facility]) Vital Signs (Past 12 Hours) Vital Signs Temp Pulse Pulse Resp BP Pulse Ox 06/03/21 22:57 36.8 C 71 18 188/82 H 94 06/03/21 19:19 37.0 C 75 18 161/82 H 95 06/03/21 15:22 37.1 C 74 21 163/70 H 91 06/03/21 14:56 74 06/03/21 12:15 96 H 16 197/79 H 95
[2021-06-04 08:07] LABS: Hemoglobin 10.4 g/dL (12.0-16.0); Mean Corpuscular Hemoglobin 30.1 pg (25-34); Mean Corpuscular Hgb Conc 31.5 g/dL (32-36); Mean Corpuscular Volume 95.4 fL (80-100); Mean Platelet Volume 9.6 fL (7.4-10.4); Platelet Count 327 K/uL (130-400); RDW Coefficient of Variation 13.8 % (11.5-14.5); RDW Standard Deviation 47.9 fL (36.4-46.3); Red Blood Count 3.46 M/uL (4.2-5.4); White Blood Count 9.12 K/uL (4.8-10.8)
[2021-06-04 08:41] LABS: BUN Creatinine Ratio 22.1 (10-20); Calcium 8.4 mg/dl (8.5-10.1); Creatinine Clr Calc Pharmacy 43.1 ml/min; Est GFR (African American) 70.4 ml/min; Est GFR (Non-African American) 60.7 ml/min
[2021-06-04 08:45] LABS: Troponin I High Sensitivity 378.6 pg/ml (0-14)
--- NOTE | 2021-06-04 08:46 | XRay Report ---
XR chest 2V PA/lateral HISTORY: 85 years-old Female s/p ppm status post placement of a left subclavian pacer COMPARISON: Chest radiograph 06/02/2021 TECHNIQUE: AP and lateral views of the chest FINDINGS: Status post placement of a left subclavian pacer with expected air and soft tissue swelling of the le ft chest wall. No postprocedural pneumothorax. Small pleural effusions. Emphysema with interstitial c oarsening. The previously noted subcentimeter opacity of the right upper lobe is not appreciated by r adiography. Degenerative changes of the shoulders and spine. IMPRESSION: 1. Status post placement of a left subclavian pacer. No pneumothorax. 2. Mild pulmonary edema with small pleural effusions redemonstrated. ACT 112: Negative or not required by law. The above report was generated using voice recognition software. It may contain grammatical, syntax o r spelling errors. Electronically signed by: Anthony Godoy M.D. 06/04/2021 8:45 AM
[2021-06-04] MEDS: amLODIPine BESYLATE 5 MG TAB PO SCH (09:34)
[2021-06-04] MEDS: ASPIRIN 81 MG ECTAB PO SCH (09:34)
[2021-06-04] MEDS: PANTOprazole 40 MG TAB PO SCH (09:35)
[2021-06-04] MEDS: LOSARTAN POTASSIUM 50 MG TAB PO SCH (09:35)
[2021-06-04] MEDS: METOPROLOL TARTRATE 25 MG TAB PO SCH ×2 (09:35→20:04)
[2021-06-04] MEDS: MEMANTINE HCL 10 MG TAB PO SCH ×2 (09:35→20:04)
--- NOTE | 2021-06-04 10:03 | Cardiology Progress Note ---
Date of Service June 04, 2021 Assessment & Plan (1) AV block, 2nd degree: (2) HTN (hypertension): (3) Elevated troponin: (4) Dementia: Plan: (1) AV block, 2nd degree: -Recent observation of intermittent Mobitz type II second-degree AV block, intermittent third-degree AV block for which patient underwent dual-chamber [employer] permanent pacemaker 06/03/2021 with placement of right atrial lead, and right ventricular, His bundle lead. Telemetry this morning reveals sinus rhythm with appropriate ventricular pacing in the 70s to 80s. Pacemaker interrogation reveals appropriate function. Chest x-ray reveals no pneumothorax, ongoing trace to small bilateral pleural effusions noted. (2) HTN (hypertension): -Blood pressure trending toward improvement. Most recent measurement 170/72. Difficult to determine how much of this is due to patient's anxiety/agitation given her dementia. Given findings of trace bilateral pleural effusion and wheezing which I think may be cardiac, will continue with current medications including losartan, metoprolol, amlodipine. Proceed with an additional dose of IV furosemide 20 mg now. Pedro catheter in place. (3) Elevated troponin: -Elevated troponin, likely reflective of high blood pressure. Do not think this is due to an acute coronary syndrome. (4) Dementia: Ongoing one-to-one supervision necessary. Dementia is certainly a complicating situation as longer she is in the hospital, anticipate ongoing confusion but certainly she has not ready for discharge from a blood pressure, volume status standpoint as of yet. DVT prophylaxis: hold off on lovenox or Heparin todday, 06/04/21 in effort to reduced risk of pocket hematoma. Will reassess this tomorrow. Admission and Anticipated Discharge Date Admission Date: June 02, 2021 Results & Data ([facility]) Vital Signs (Past 12 Hours) Vital Signs Temp Pulse Pulse Resp BP Pulse Ox 06/04/21 07:37 36.6 C 77 20 170/72 H 90 06/04/21 03:22 36.3 C L 70 18 184/77 H 94 06/04/21 01:06 71 06/03/21 22:57 36.8 C 71 18 188/82 H 94 Diagnostic Findings Cardiac Enzymes 06/02/21 06/02/21 06/03/21 Range/Units 13:50 20:43 02:59 Troponin I High Sens 16.2 H 17.5 H 42.0 H D (0-14) pg/ml 06/03/21 06/04/21 Range/Units 10:34 06:56 Troponin I High Sens 343.6 H* D 378.6 H* (0-14) pg/ml CBC 06/04/21 Range/Units 06:56 WBC 9.12 (4.8-10.8) K/uL RBC 3.46 L (4.2-5.4) M/uL Hgb 10.4 L (12.0-16.0) g/dL Hct 33.0 L (37-47) % Plt Count 327 (130-400) K/uL Comprehensive Metabolic Panel 06/04/21 Range/Units 06:56 Sodium 141 (136-145) mmol/L Potassium 4.0 (3.5-5.1) mmol/L Chloride 107 (98-107) mmol/L Carbon Dioxide 27 (21-32) mmol/L BUN 19 (6-23) mg/dl Creatinine 0.86 (0.6-1.2) mg/dl Glucose 83 (70-99(Fasting)) mg/dl Calcium 8.4 L (8.5-10.1) mg/dl Intake and Output 06/03/21 06/04/21 06/04/21 22:59 06:59 14:59 Output Total 1499 Balance -1499 / -1724 - Output: Urine Amount (Catheter) 1499 / 1724 Pedro/Indwelling 1499
[2021-06-04] MEDS ORDERED: FUROSEMIDE INJ 20 MG/2 ML VIAL IV ONE (10:11)
--- NOTE | 2021-06-04 10:17 | Communication Note ---
Date of Service: June 04, 2021 I spoke to . He feels he can care for her at home. If BP improved 06/05/21, will consider discharge then.
[2021-06-04] MEDS: SIMVASTATIN 10 MG TAB PO SCH (20:05)
[2021-06-04] MEDS: ACETAMINOPHEN 325 MG TAB PO PRN (20:35)
[2021-06-04] MEDS ORDERED: amLODIPine BESYLATE 5 MG TAB PO ONE (23:10)
--- NOTE | 2021-06-04 23:36 | Hospitalist Progress Note ---
Date of Service June 04, 2021 Assessment & Plan (1) Heart block: Plan: Patient is 85-year-old female with PMH dementia, HTN, dyslipidemia presented to ER for shortness of breath and was referred by cardiology for Mobitz II, 2:1 AV block findings found on ZIO monitor EKG on admission consistent with third-degree AV block with ventricular rate in the 40s. S/P pacemaker placement on 06/[address] Blackwell No postop complication CXR showed Status post placement of a left subclavian pacer. No pneumothorax. Telemonitor showed NSR Pacemaker interrogation reveals appropriate function. continue 1 to 1 observation prevent her from causing harm to pacemaker pocket/ leads due to her dementia continue monitor closely (2) Elevated troponin: Plan: Mostly due to elevate blood pressure troponin peak to 343 Denies any chest pain Cardiology on board Continue aspirin, statin and metoprolol (3) Abnormal CXR: Plan: CXR: Suspected mild right lower lung airspace opacity. Cardiomegaly without evidence for pulmonary edema CT chest showed Cardiomegaly and moderate pulmonary edema.6 mm groundglass nodul e in the right upper lobe is nonspecific CXR repeat today showed Mild pulmonary edema with small pleural effusions redemonstrated. Pt without known fever/chills, cough WBC: 11, Procalcitonin WNL Abx was discontinued Additional lasix will give today Continue monitor (4) Dementia: Plan: Continue memantine (5) HTN (hypertension): Plan: BP elevated Continue losartan Metoprolol 25mg BID and Amlodipine increased to 7.5mg Continue monitor BP (6) Dyslipidemia: Plan: Continue statin DVT Prophylaxis SCDs Full Code Follows with Dr Epstein for routine care Admission and Anticipated Discharge Date Admission Date: June 02, 2021 Subjective Patient was seen and evaluated for postop follow-up for pacemaker placement Lying in bed with no acute distress with 1 to 1 sitter at bedside Very calm and follows command Denies any pain, palpitation and SOB Review of Systems Review of Systems: All systems reviewed & are unremarkable except as noted in Subjective Physical Exam Physical Exam: General- No acute distress Head- atraumatic Eyes- PERRL, EOMI, ENT- oropharynx clear Neck- supple, no JVD Lungs- clear to auscultation Heart- regular rhythm; no murmur Abdomen- normal bowel sounds, soft, nontender Extremities- no calf tenderness Neuro- alert, oriented x 3; PERRL, EOMI; no facial palsy; no dysarthria Skin- warm & dry Results & Data Results & Data ([facility]) Vital Signs (Past 12 Hours) Vital Signs Temp Pulse Pulse Resp BP Pulse Ox 06/04/21 22:53 67 06/04/21 22:47 36.7 C 67 16 183/71 H 92 06/04/21 18:52 36.5 C 80 18 159/72 H 95 06/04/21 16:12 71 06/04/21 12:20 73
[2021-06-05 06:28] LABS: Hematocrit (blood only) 35.7 % (37-47); Hemoglobin 11.6 g/dL (12.0-16.0); Mean Corpuscular Hemoglobin 30.4 pg (25-34); Mean Corpuscular Hgb Conc 32.5 g/dL (32-36); Mean Corpuscular Volume 93.7 fL (80-100); Mean Platelet Volume 9.4 fL (7.4-10.4); Platelet Count 329 K/uL (130-400); RDW Coefficient of Variation 13.4 % (11.5-14.5); RDW Standard Deviation 46.1 fL (36.4-46.3); Red Blood Count 3.81 M/uL (4.2-5.4); White Blood Count 11.41 K/uL (4.8-10.8)
[2021-06-05 06:54] LABS: Calcium 8.5 mg/dl (8.5-10.1); Creatinine Clr Calc Pharmacy 46.3 ml/min; Est GFR (African American) 76.8 ml/min; Est GFR (Non-African American) 66.3 ml/min
[2021-06-05] MEDS ORDERED: hydrALAZINE HCL 20 MG/ML VIAL IV PRN (07:44)
[2021-06-05] MEDS: LOSARTAN POTASSIUM 50 MG TAB PO SCH (08:44)
[2021-06-05] MEDS: ASPIRIN 81 MG ECTAB PO SCH (08:44)
[2021-06-05] MEDS: MEMANTINE HCL 10 MG TAB PO SCH (08:44)
[2021-06-05] MEDS: METOPROLOL TARTRATE 25 MG TAB PO SCH (08:45)
[2021-06-05] MEDS ORDERED: hydrALAZINE 10 MG TAB PO SCH (09:00)
[2021-06-05] MEDS ORDERED: amLODIPine BESYLATE 5 MG TAB PO SCH (09:00)
--- NOTE | 2021-06-05 11:06 | Cardiology Progress Note ---
Date of Service June 05, 2021 Assessment & Plan (1) AV block, 2nd degree: (2) HTN (hypertension): (3) Elevated troponin: (4) Dementia: Plan: (1) AV block, 2nd degree: -Recent observation of intermittent Mobitz type II second-degree AV block, intermittent third-degree AV block for which patient underwent dual-chamber Medtronic permanent pacemaker 06/03/2021 with placement of right atrial lead, and right ventricular, His bundle lead. -Patient to have wound check, outpatient pacemaker interrogation per protocol for new device and interval of 6 to 10 days post procedure. I have already requested the appointment in her epic record yesterday. She already has a clinical cardiology follow-up appointment tentatively planned on 07/26/2021. (2) HTN (hypertension): -Blood pressure elevated. I shared concerns with the hospitalist service of her ongoing high blood pressure readings. However, her outpatient blood pressure readings have been historically quite well controlled, most recent measurement a week ago performed at the time of her clinic visit with me was 134/86, with other recent readings of 144/72, 140/78, and similar readings dating back to 2019. This of course is much different than the 170s to 180 systolic blood pressure range observed during recent hospital stay. As noted, patient with dementia, easily agitated. I have concerns with regards to being too aggressive with her antihypertensive regimen for fear of making her blood pressure too low once that she gets home. I have therefore reduced her amlodipine back to 5 mg daily, and I have eliminated the order for the oral hydralazine. (3) Elevated troponin: -Elevated troponin, likely reflective of high blood pressure. Do not think this is due to an acute coronary syndrome. (4) Dementia: Ongoing one-to-one supervision necessary. Dementia is certainly a complicating situation as longer she is in the hospital, anticipate ongoing confusion but certainly she has not ready for discharge from a blood pressure, volume status standpoint as of yet. DISPOSITION: -Device pocket examined today by the undersigned 06/05/2021, bandage removed and replaced. Incision looks good, with mild appropriate erythema, no drainage, no hematoma. Patient became very excited with removing her bandage, screaming in pain which once again I think is a good marker of why her blood pressure is elevated in the setting of her dementia in the hospital. Patient stable for discharge from cardiac perspective on aspirin 81 mg daily, simvastatin 10 mg by mouth daily, metoprolol tartrate 25 mg twice daily (new medication) losartan 100 mg by mouth daily in the morning) amlodipine 5 mg daily (replaces felodipine) and furosemide 20 mg by mouth daily. -Therefore metoprolol and furosemide are actually the new medications with regards to her blood pressure and suspected diastolic dysfunction. -I had spoken to her by phone yesterday. He was in favor of bringing her home. Recommend discharge today. Admission and Anticipated Discharge Date Admission Date: June 02, 2021 Subjective Patient seen in cardiology follow-up. Exam limited due to his dementia. Does not recognize me. Does not recognize that she is in the hospital or what year it is. She has a nursing program chair watching her in one-to-one supervision. Telemetry reveals sinus rhythm in the 70s with atrial sensing and ventricular pacing. Review of Systems Review of Systems: Unobtainable due to cognitive status Physical Exam Constitutional: no acute distress Respiratory: normal respiratory effort, lungs clear to auscultation Cardiovascular: Rate/Rhythm: regular rate and + bradycardic Heart Sounds: no murmur Vessels: no JVD Extremities: no edema Gastrointestinal (Abdomen): normal bowel sounds, soft, nontender, no hepatosplenomegaly Results & Data ([facility]) Vital Signs (Past 12 Hours) Vital Signs Temp Pulse Pulse Resp BP Pulse Ox 06/05/21 07:08 67 06/05/21 07:03 36.7 C 67 19 186/79 H 95 06/05/21 03:13 36.4 C L 72 18 172/75 H 95 Laboratory Results CBC 06/05/21 Range/Units 05:54 WBC 11.41 H (4.8-10.8) K/uL RBC 3.81 L (4.2-5.4) M/uL Hgb 11.6 L (12.0-16.0) g/dL Hct 35.7 L (37-47) % Plt Count 329 (130-400) K/uL Comprehensive Metabolic Panel 06/05/21 Range/Units 05:54 Sodium 137 (136-145) mmol/L Potassium 4.0 (3.5-5.1) mmol/L Chloride 103 (98-107) mmol/L Carbon Dioxide 28 (21-32) mmol/L BUN 24 H (6-23) mg/dl Creatinine 0.80 (0.6-1.2) mg/dl Glucose 90 (70-99(Fasting)) mg/dl Calcium 8.5 (8.5-10.1) mg/dl Intake and Output 06/04/21 06/05/21 06/05/21 22:59 06:59 14:59 Intake Total 225 / 665 200 / 665 Output Total 1949 Balance -400 / -1285 -325 / -1285 Intake: Oral 225 / 665 200 / 665 Output: Urine Amount (Catheter) 1949 Pedro/Indwelling 1949 Other: Weight 76.3 kg Weight Measurement Method Built in [facility]
[2021-06-05] MEDS: ACETAMINOPHEN 325 MG TAB PO PRN (12:38)
--- NOTE | 2021-06-05 14:48 | Discharge Summary ---
Date of Service June 05, 2021 Admission HPI Per Admitting Provider Patient is 85-year-old female with PMH dementia, HTN, dyslipidemia presented to ER for shortness of breath and was referred by cardiology for 2: 1 AV block findings found on ZIO monitor. Patient with history of dementia and helps assist with history. Reported that for the past 10 months patient has had shortness of breath and noted fatigue with exertion. He reports patient appears to become short of breath walking throughout house or climbing stairs and has to stop multiple times when grocery shopping. He feels that this has been a gradual decline but does not feel symptoms have greatly worsened over the past 1 to 2 weeks. Patient denies any chest pain. She is sitting in bed and denies any current shortness of breath. Denies any dizziness or syncopal episodes. reports at baseline patient has difficulty with balance and needs assistance with walking and uses a cane. Denies any recent falls. denies any known fever or chills. Denies any known cough or choking episodes. Reports patient had 1 episode of vomiting 3 days ago after eating breakfast, no other vomiting. Denies abdominal pain, diarrhea. No known tick bites. Patient was on felodipine and PCP had discontinued secondary to bradycardia, upon follow-up with cardiology last week felodipine was restarted. Denies diaphoresis, hematemesis, ABARCA, vision changes, neck pain, orthopnea, palpitations, sore throat, otalgia, rhinorrhea, abdominal pain, paresthesias, weakness, extremity edema, rashes, urinary symptoms. Admission Exam Per Admitting Provider General: no distress, WDWN Head: normocephalic, atraumatic Eyes: PERRL, EOM's intact, conjunctiva non-injected, anicteric ENT: normal inspection external ears, nose, mucous membranes moist Neck: supple, trachea midline Lungs: no respiratory distress, +rales RLL, no wheezing or rhonchi CV: bradycardia, rate 42, regular rhythm, systolic murmur, no pretibial edema Abd: normal BS, soft, non-tender Ext: no cyanosis, no calf tenderness Neuro: Alert, oriented to person only, no focal deficits noted, normal affect Skin: warm, dry Principal Diagnosis Heart block Elevated troponin: Abnormal CXR: Dementia: HTN (hypertension): Dyslipidemia Discharge Exam General- No acute distress Head- atraumatic Eyes- PERRL, EOMI, ENT- oropharynx clear Neck- supple, no JVD Lungs- clear to auscultation Heart- regular rhythm; no murmur Abdomen- normal bowel sounds, soft, nontender Extremities- no calf tenderness Neuro- alert, oriented x 3; PERRL, EOMI; no facial palsy; no dysarthria Skin- warm & dry Discharge Data Allergies Allergy/AdvReac Type Severity Reaction Status Date / Time latex Allergy Intermediate ITCHY WHEN Verified 06/02/21 16:00 WEARING HOUSEHOLD GLOVES rofecoxib Allergy Unknown pesonality Verified 06/02/21 16:00 changes codeine AdvReac Mild NAUSEA Verified 06/02/21 16:00 oxycodone AdvReac Unknown hallucinations/altered Verified 06/02/21 16:00 mental state Consultations 06/02/21 14:16 ED Decision to Admit Stat 06/02/21 17:20 Consult Cardiology Routine Procedures Performed Operation Date: 06/03/21 08:00 Actual Procedures s Bundle of his Recording - Dalia Blackwell DO p Pacer with A/V Leads (Dual) - Dalia Blackwell DO s Venogram, Unilateral - Dalia Blackwell DO Ordered Studies 06/02/21 17:44 CT chest diagnostic wo con Urgent 06/03/21 06:45 EP Lab Images for PACS ONCE EP Lab Images for PACS ONCE XR chest 2V PA/lateral HISTORY: 85 years-old Female s/p ppm status post placement of a left subclavian pacer COMPARISON: Chest radiograph 06/02/2021 TECHNIQUE: AP and lateral views of the chest FINDINGS: Status post placement of a left subclavian pacer with expected air and soft tissue swelling of the left chest wall. No postprocedural pneumothorax. Small pleural effusions. Emphysema with interstitial coarsening. The previously noted subcentimeter opacity of the right upper lobe is not appreciated by radiography. Degenerative changes of the shoulders and spine. IMPRESSION: 1. Status post placement of a left subclavian pacer. No pneumothorax. 2. Mild pulmonary edema with small pleural effusions redemonstrated. ACT 112: Negative or not required by law. The above report was generated using voice recognition software. It may contain grammatical, syntax or spelling errors. Electronically signed by: Anthony Godoy M.D. 06/04/2021 8:45 AM Dictated:06/04/21842 Transcribed: 06/04/21842 CT chest diagnostic wo con CLINICAL HISTORY: r/o pneumonia TECHNIQUE: Multidetector row helical CT of the chest was performed. Coronal and sagittal reformations were obtained. Automated dose lowering techniques and/or adjustment according to patient size were utilized for this exam. CT DOSE: 222.72 mGy.cm Comparison: None available at the time of this dictation. FINDINGS: Lungs and pleura: Bilateral pleural effusions and atelectasis are seen. There is diffuse interlobular septal thickening. A 6 mm groundglass opacity is seen in the right upper lobe (series 4 image 128). Heart and pericardium: Cardiomegaly is seen with biatrial enlargement. Vessels: Moderate atherosclerotic changes in the aorta and coronary arteries. Mediastinum and gloria: Subcentimeter lymph nodes are seen. Chest wall and lower neck: Unremarkable. Abdomen: A hiatal hernia is seen. Bones: Degenerative changes in the thoracic spine. IMPRESSION: 1. There are small bilateral pleural effusions with associated atelectasis. 2. Cardiomegaly and moderate pulmonary edema. 3. 6 mm groundglass nodule in the right upper lobe is nonspecific, however no follow-up is required by Fleischner criteria. ACT 112: Negative or not required by law. Electronically signed by: Ricky Hayes M.D. 06/02/2021 9:34 PM Dictated:06/02/212120 Transcribed: 06/02/212120 XR chest 1V portable CLINICAL HISTORY: weakness COMPARISON STUDY: Chest radiograph July 12, 2020. FINDINGS: Lung volumes are normal. No pneumothorax or pleural effusion is present. Mild cardiomegaly is unchanged. No evidence for pulmonary edema. There are suspected mild right lower lung opacities. IMPRESSION: 1. Suspected mild right lower lung airspace opacity. This could reflect an infectious process. Radiographic follow up is recommended. 2. Cardiomegaly without evidence for pulmonary edema. ACT 112: Negative or not required by law. Electronically signed by: Chepe Oliveros M.D. 06/02/2021 2:14 PM Dictated:06/02/21 141 Transcribed: 06/02/211412 Hospital Course (1) Heart block: Patient is 85-year-old female with PMH dementia, HTN, dyslipidemia presented to ER for shortness of breath and was referred by cardiology for Mobitz II, 2:1 AV block findings found on ZIO monitor EKG on admission consistent with third-degree AV block with ventricular rate in the 40s. S/P pacemaker placement on 06/[address] Blackwell No postop complication CXR showed Status post placement of a left subclavian pacer. No pneumothorax. Telemonitor showed NSR Pacemaker interrogation reveals appropriate function. continue 1 to 1 observation prevent her from causing harm to pacemaker pocket/ leads due to her dementia case discussed with cardio Follow up with cardiology clinic for wound check Ok from cardiology standpoint to discharge home today (2) Elevated troponin: Mostly due to elevate blood pressure troponin peak to 343 Echo showed no regional wall motion abnormalities. LV systolic function is normal with EF 65-70% Denies any chest pain Cardiology on board Continue aspirin, statin and metoprolol Stable from cardiology standpoint (3) Abnormal CXR: CXR: Suspected mild right lower lung airspace opacity. Cardiomegaly without evidence for pulmonary edema CT chest showed Cardiomegaly and moderate pulmonary edema.6 mm groundglass nodule in the right upper lobe is nonspecific CXR repeat today showed Mild pulmonary edema with small pleural effusions redemonstrated. Pt without known fever/chills, cough WBC: 11, Procalcitonin WNL Abx was discontinued Continue lasix 20mg daily Check BMP in week while on lasix to monitor your renal function and electrolytes (4) Dementia: Continue memantine (5) HTN (hypertension): BP elevated possible related to dementia (agitated) due to hospital setting Continue losartan Metoprolol 25mg BID and Amlodipine changed back to 5mg Reviewed outpatient BP check and her BP has been stable Continue monitor BP (6) Dyslipidemia: Continue statin DVT Prophylaxis SCDs Full Code Follows with Dr Epstein for routine care Disposition discharge home today wants to take her home Total Time Total Time Spent Total Time Spent (In Minutes): 35 minutes Discharge Plan Discharge Items Patient Disposition: Home - Home Health Services Reason For Visit: HEART BLOCK Discharge Diagnosis: Heart block Elevated troponin: Abnormal CXR: Dementia: HTN (hypertension): Dyslipidemia: Condition on Discharge: Fair Activity: As commented below Activity Comment: do not raise the left elbow over the left shoulder for 1 month Lifting: No more than 10 pounds Lifting Comment: do not lift more than 10 pounds with the left arm for 2 weeks Bathing: Keep incision dry Bathing Comment: keep dressing on & dry until wound check next week Non-emergency contact: Primary Care Provider and Air Cargo Agent Call non-emergency contact if: you have any medication questions and your temperature is above 101 Follow-up/Referrals: Jimena Epstein DO [Primary Care Provider] - (Date & Time 06/08/2021 3:00 PM Provider Jimena Epstein DO Department [facility] ) Diet: Heart Healthy Addtl Attending Provider Instructions: Follow up with your primary care provider Dr. Epstein on 06/08/2021 @3:00 PM at [facility] Follow up with your cardiology Continue monitor your blood pressure Check BMP in 1-2 weeks to monitor your electrolytes and renal function Fall precaution New medications Furosemide 20mg once a day Metoprolol Tartrate 25mg twice a day Changed Felodipine changed to Amlodipine 5 mg once a day Device and wound check next week at [facility] Cardiology Try to wear the surgical bra for the next 2 weeks to help with wound healing If you notice any swelling at the device site call [facility] Cardiology immediately Keep the area for the cardiac cath clean and dry to avoid any infection Do not use creams, lotions or ointment on the wound site Do not take a bath, tub soak, go in a Jacuzzi, or swim in a pool or arguelles for one week after the procedure. Do not participate in strenuous activities for 3 days after the procedure. Gradually increase your activities until you reach your normal activity level within two days after the procedure. Avoid heavy lifting (more than 10 pounds) and pushing or pulling heavy objects for the first 5 days after the procedure. Pending Studies at Discharge: No Stand-Alone Forms: My [employer], Smoking Cessation Medications and DC Order Prescriptions: New amlodipine [Norvasc] 5 mg Tablet 5 mg PO QAM Qty: 30 RF: 0 furosemide 20 mg Tablet 20 mg PO QAM Qty: 30 RF: 0 metoprolol tartrate 25 mg Tablet 25 mg PO BID 30 Days Qty: 60 RF: 0 Continued simvastatin 10 mg tablet 10 mg PO QPM RF: 0 losartan 100 mg tablet 100 mg PO QAM RF: 0 alendronate 70 mg tablet 70 mg PO WK RF: 0 memantine 10 mg tablet 10 mg PO BID RF: 0 cholecalciferol (vitamin D3) [Vitamin D3] 50 mcg (2,000 unit) Capsule 50 mcg PO DAILY RF: 0 polyethylene glycol 3350 17 gram Powder In Packet 17 g PO DAILY PRN (Reason: Constipation) RF: 0 omeprazole 20 mg Capsule,Delayed Release(Dr/Ec) 20 mg PO 3XWK RF: 0 aspirin 81 mg Tablet 81 mg PO DAILY RF: 0 PreserVision AREDS 7,160 unit- 113 mg-100 unit Tablet 1 tab PO BID RF: 0 Discontinued felodipine 5 mg tablet extended release 24 hr 5 mg PO QAM RF: 0 Discharge Orders: Discharge Order (Routine); Ordered 06/05/21 Ordered By: Jesus White Admission Data Admit Date/Time: 06/02/21 14:36 Attending Provider: Jesus White Admit Provider: Stacy Verma Primary Care Provider: Jimena Epstein Other Providers: Stacy Verma ; Wali Cartwright
[2021-06-06] MEDS ORDERED: FUROSEMIDE 20 MG TAB PO SCH (09:00)
[2021-06-06] MEDS ORDERED: amLODIPine BESYLATE 5 MG TAB PO SCH (09:00)
--- NOTE | 2021-06-09 17:27 | Operative Report (OR) ---
DATE OF PROCEDURE: 06/03/2021. PREOPERATIVE DIAGNOSIS: Complete heart block. POSTOPERATIVE DIAGNOSIS: Complete heart block. PROCEDURE: Dual-chamber rate responsive permanent pacemaker under fluoroscopic guidance along with p eripheral venogram and intracardiac electrogram His bundle recording. SURGEON: Dalia Blackwell DO. SMALL BUSINESS CONSULTANT: None. ANESTHESIA: Monitored conscious sedation administered under my supervision by Yasmin Osullivan. Star t time 8:12, end time 9:24. Total of 125 mcg of fentanyl, 25 mg of Phenergan, 125 mL of IV fluids, 2 grams of Ancef, 15 mL of contrast. COMPLICATIONS: None. CONDITION: Stable. URINE OUTPUT: Not applicable. SPECIMENS: None. FINDINGS: See below. DRAINS: None. INDICATIONS: This is an 85-year-old female with a past medical history for hypertension, dementia, h yperlipidemia, gastroesophageal reflux disease, mild tricuspid regurgitation, and complete heart bloc k. She was found to have complete heart block on a Zio patch monitor and was referred to the emergen cy room where she was recommended to have a pacemaker prior to discharge. CONSENT: Consent was obtained via phone conversation with her , Marcelo as the patient does have some underlying dementia. Marcelo expressed an understanding of the procedure with the risks include, b ut not limited to, sudden cardiac , cardiac arrhythmias, cerebrovascular accident, myocardial in farction, injury to the blood vessels, chamber of the heart and lung, bleeding and infection and phon e consent was obtained. DESCRIPTION OF PROCEDURE: The patient was brought into the electrophysiology lab in a fasting state. She was connected to continuous cardiac rehabilitation specialist. Timeout was performed to ensure patient identity correctly. She was prepped and draped over the left temporal space in normal surgical standard fashi on. Monitored conscious sedation was given throughout the procedure for patient's comfort level, uni versal precautions were maintained throughout the procedure. 10 mL of 1% lidocaine-bupivacaine mixture were given in the left deltopectoral groove. An incision w as made in the left deltopectoral groove. Blunt dissection was performed down to the pectoralis musc le. Then, using blunt dissection over the pectoralis muscle within the pectoralis fascia, a pacemake r pocket was created. Then, a peripheral venogram was performed to identify the axillary vein. Veno us axillary access was obtained through a needlestick without any problems. A guidewire was then ins erted without any resistance. Then, a 7-Scottish sheath was inserted over the guidewire. The dilator w as removed. Then, a second guidewire was inserted through the 7-Scottish sheath to allow for retained venous access. Sheath was removed, flushed, reinserted over the dilator, then reinserted one of the guidewires, the guidewire and dilator removed. Then, the right atrial lead was temporarily positione d into the right ventricular apex under fluoroscopic guidance to have backup pacing. Then, a second 7-Scottish sheath was inserted over the retained guidewire, the guidewire and dilator removed. Then, t he His C315 sheath was advanced over a Glidewire into the right ventricle. The Glidewire and dilator removed. Then, the left bundle lead was advanced through the sheath and intracardiac electrogram Hi s bundle recordings was performed when the camera was in ORTIZ 10. Once I found where the His bundle, I then positioned a camera into ORTIZ 30 and marked where the His bundle area was on my fluoroscopy scre ens. Then, I came down about 2 cm from this in a line that would extend out to the apex to where I p ositioned the bundle lead. I came on pacing and I had a nice W pattern in V1, so I moved the camera to TURKISH 30 and started giving a series of clockwise turns to screw the lead into the septum pausing yue rodas once in a while to see how my pacing morphology specifically in V1 change when I developed an R p rime. I then gave contrast through the sheath to see I was well into the septum. I slit the sheath u nder fluoroscopic guidance and left the 7-Scottish sheath around the bundle lead while I repositioned t he right atrial lead. The right atrial lead screw was retracted and removed from the right ventricular apex that was used f or temporary backup pacing. Then, using the preformed J curve, the right atrial lead was positioned into atrial appendage under fluoroscopic guidance. There was adequate pacing and sensing thresholds and no diaphragmatic stimulation with high output pacing. The 7-Scottish sheath was peeled away and th e lead was fixated to pectoralis muscle using 0 silk suture. The 7-Scottish sheath around the left bundle lead was then peeled away and the lead was fixated to pect oralis muscle using 0 silk suture. Then, the pocket was flushed with copious amounts of vancomycin a nd saline wash and inspected for hemostasis. Then, the pulse generator was attached to the leads brandon ing sure the pins were in appropriate position, passed set screws, and set screws were all tightened. Pulse generator was then placed in the antibiotic pouch followed then by being placed in the pocket , making sure the leads were lying flat beneath the device. The incision was closed in a 3-layer fas hion with 2-0 Vicryl interrupted suture, followed by 3-0 Vicryl interrupted suture, followed by 4-0 M onocryl running stitch and Dermabond was applied followed by Telfa and Tegaderm dressing. EQUIPMENT: 1. Pulse generator is a [employer] Randolph XT DR YAW Conrad [id number], serial number [id number]. 2. TYRX pouch, reference [id number], lot number [id number]. 3. Right atrial lead, Medtronic 5076-52 cm, serial number [id number]. 4. Left bundle lead, Medtronic 3830-69 cm, serial number [id number]. INTRAOPERATIVE TESTING FINDINGS: 1. Intracardiac electrogram His bundle recordings, AH 52 milliseconds, HV 43 milliseconds. 2. Right atrial lead, P waves 2 millivolts, impedance 666 ohms, threshold 0.8 volts at 0.5 milliseco nds. 3. Left bundle lead, R waves 7.9 millivolts, impedance 809 ohms, threshold 0.5 volts at 0.5 millisec onds. FINAL MEASUREMENTS THROUGH THE DEVICE. 1. Right atrial lead, P waves 2 millivolts, impedance 589 ohms, threshold 0.75 volts at 0.4 millisec onds. 2. Left bundle lead, R waves 14.3 millivolts, impedance 741 ohms, threshold 0.5 volts at 0.4 millise conds. FINAL PARAMETERS: DDD 60/130. Right atrial amplitude 3.5 volts, pulse width 0.4 milliseconds, sensi tivity 0.3 millivolts. Left bundle lead amplitude 3.5 volts, pulse width 0.4 milliseconds, sensitivi ty 0.9 millivolts. IMPRESSION: Successful dual chamber rate responsive permanent pacemaker under fluoroscopic guidance along with peripheral venogram and intracardiac electrogram His bundle recordings secondary to comple te heart block. PLAN: Monitor the patient overnight, 12-lead ECG, chest x-ray. She cannot lift the left elbow or le ft shoulder for 1 month. She cannot lift more than 10 pounds with left arm for 2 weeks. She is to k eep the dressing on and dry until her wound check next week. Job ID: [id number]
== END 2021-06-05 15:26 | disposition home or self-care (01) | DRG 243 ==
LOC: ED 13:07 → SUATTDRO 14:36 → EDINP 14:36 → 2S 17:14